=== PATIENT | male | born 1955 | race African-American/Black ===

== ENCOUNTER 2017-09-07 07:22 | Emergency (ER) | payer SELFPAY ==
[2017-09-07] MEDS ORDERED: ACETAMINOPHEN 325 MG TABLET PO ONE (07:47)
[2017-09-07] MEDS ORDERED: PREDNISONE 20 MG TABLET PO ONE (08:51)
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
[2017-09-07 09:21] VITALS: BP 122/81
== END 2017-09-07 09:17 | disposition home or self-care (01) ==
LOC: ER 07:22
DX: S73.102A Unspecified sprain of left hip, initial encounter (principal); X50.1XXA Overexertion from prolonged static or awkward postures, initial encounter; Y93.H3 Activity, building and construction; Y99.0 Civilian activity done for income or pay; I10 Essential (primary) hypertension; E11.9 Type 2 diabetes mellitus without complications; Z87.442 Personal history of urinary calculi
CPT/HCPCS: 99283; 73502; J7512

== ENCOUNTER 2018-04-19 03:12 | Emergency (ER) | payer BC ==
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
[2018-04-19] MEDS ORDERED: HYDROCODONE/ACETAMINOPHEN 5-325 MG (6 TAB/ER DISP) PO PRN (05:25)
[2018-04-19 05:47] VITALS: BP 139/81
== END 2018-04-19 05:56 | disposition home or self-care (01) ==
LOC: ER 03:12
DX: M25.552 Pain in left hip (principal); W19.XXXA Unspecified fall, initial encounter; N40.0 Benign prostatic hyperplasia without lower urinary tract symptoms; I10 Essential (primary) hypertension; E11.9 Type 2 diabetes mellitus without complications; Z87.891 Personal history of nicotine dependence
CPT/HCPCS: 99284

== ENCOUNTER → 2018-05-14 | Outpatient (CLI) | payer BC ==
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
== END ==
LOC: RAD 19:31
PROVIDERS: ATTEND Family Medicine
DX: N40.1 Benign prostatic hyperplasia with lower urinary tract symptoms (principal); R97.20 Elevated prostate specific antigen [PSA]; R31.0 Gross hematuria
CPT/HCPCS: 74176